=== PATIENT | male | born 1930 | race Caucasian/White ===

== ENCOUNTER → 2017-05-05 | Outpatient (CLI) | payer MEDICARE, BC ==
[~2017-05-05] MED LIST: ACETAMINOPHEN PO; AMITRIPTYLINE H50 MG PO; ASPIRIN81 MG PO; BENADRYL25 M3 PO; CARVEDILOL12.5 MG PO; ENSURE LIQUID237 M2 PO; FISH OIL PO; FUROSEMIDE PO; IRON PO; LISINOPRIL20 MG PO; MIRALAX17 GM PO; OMEPRAZOLE40 M1 PO; WARFARIN SODIUM3 MG PO; ZOCOR80 MG PO
--- NOTE | ~2017-05-05 | CT2 ---
[facility] A Service of [facility] RADIOLOGY TEXT RESULTS PATIENT: NIURKA VILLARREAL LOCATION: CCAT : 31 UNIT #: [id number] AGE: [address]: OLIVIA RUCKER APRN SEX: M ORDER DR: [id number] [place] [id number] [facility]. [place], [place] [address] [id number] O MR#: [id number] Acc #: [id number] NAME: NIURKA VILLARREAL : 1930 SEX: M STUDY DATE/TIME: 05/05/2017 14:29 UNIT: [facility]AT ROOM: STUDY DESCRIPTION: CT Abd and Pelv W Cont Attending Physician: Olivia Rucker Aprn Referring Physician: Olivia Rucker Aprn Ordering Physician: Olivia Rucker Aprn MEDICAL IMAGING REPORT This report is preliminary unless electronic signature is present EXAM CT abdomen and pelvis INDICATIONS Bilateral lower quadrant abdominal pain, 4-[address] of the abdomen and pelvis with oral and IV contrast. Coronal and sagittal reconstructions were obtained. This CT exam was performed with one or more of the following radiation dose reduction techniques: automatic exposure control, adjustment of mA and/or kV according to patient size, and iterative reconstruction. COMPARISON CT abdomen and pelvis dated 08/28/2015. FINDINGS ABDOMEN: The heart is enlarged. There has been prior mitral valve replacement and possibly aortic valve replacement. There is a cardiac pacemaker. No pericardial or pleural effusions. There are some chronic interstitial changes in both lung bases. 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 The splenic artery aneurysm measured 2.5 x 1.9 cm in June 2015. The gallbladder is surgically absent. No intrahepatic or extrahepatic biliary dilatation. Pancreas is normal. There is a left adrenal nodule measuring 1.7 cm. This is consistent with a benign adrenal adenoma and unchanged from 2015. [facility] A Service [facility] RADIOLOGY TEXT RESULTS PATIENT: NIURKA VILLARREAL LOCATION: CCAT : 31 UNIT #: [id number] AGE: [address]: OLIVIA RUCKER APRN SEX: M ORDER DR: There are multiple benign cysts within the kidneys. 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 The kidneys are mildly atrophic. The bowel is not dilated. There is a large volume of stool in the colon. There is a supraumbilical midline abdominal wall hernia containing loop of small bowel. There is a small right lateral abdominal wall hernia containing some loops of small bowel. No complicating features are identified. PELVIS: No pelvic mass. No enlarged pelvic or inguinal lymph nodes. IMPRESSION 1. Enlarging splenic artery aneurysm measuring 3.3 cm, compared to 2.5 cm on 06/18/2015. 2. Multiple incidental findings, as detailed in the above report. There is a midline anterior abdominal wall hernia and a right lateral abdominal wall hernia containing loops of small bowel, however no complicating features are identified. 3. Diverticulosis. Dictated by... Tanvir Esquivel M.D. THIS IS AN ELECTRONICALLY VERIFIED REPORT Tanvir Esquivel M.D. at 05/06/2017 8:41 AM BULL/heidy TD: 05/05/2017 22:03 JOB #: [id number] MEDICAL IMAGING REPORT Page 1 of 1 COPY
[2017-05-05 17:26] LABS: POC - CREATININE 0.89 mg/dL (0.64-1.27); POC - GFR >60.0 mL/min (>60)
== END | disposition home or self-care (01) ==
LOC: CCAT 12:52
PROVIDERS: Nurse Practitioner
DX: R10.31 Right lower quadrant pain (principal); R10.32 Left lower quadrant pain; I72.8 Aneurysm of other specified arteries; K43.9 Ventral hernia without obstruction or gangrene; K57.90 Diverticulosis of intestine, part unspecified, without perforation or abscess without bleeding
CPT/HCPCS: 74177; 82565; Q9967